=== PATIENT | female | born 1990 | race Caucasian/White ===

== ENCOUNTER 2018-05-23 09:06 | Inpatient (IN) | payer OTHER ==
[2018-05-23] MEDS ORDERED: CARBOPROST 250 MCG INJ IM (10:00)
[2018-05-23] MEDS ORDERED: METHYLERGONOVINE 0.2 MG INJ IM (10:00)
[2018-05-23] MEDS ORDERED: OXYTOCIN 30 UNITS/LR 500 ML IV (10:00)
[2018-05-23] MEDS ORDERED: BUTORPHANOL 2 MG INJ IV (10:00)
[2018-05-23] MEDS ORDERED: MISOPROSTOL 200 MCG TAB PR (10:00)
[2018-05-23] MEDS: LACTATED RINGER'S 1,000 ML IV* ×2 (10:49→18:24)
[2018-05-23 10:54] LABS: ADD MAN DIFF? NO
[2018-05-23 10:55] LABS: WHITE BLOOD COUNT 6.8 10^3/ul (4.8-10.8)
[2018-05-23 10:55] LABS: BASOPHILS % 0.3 % (0.0-2.0); EOSINOPHILS # 0.1 10^3/ul (0.0-0.5); HEMATOCRIT 33.6 % (37.0-47.0); HEMOGLOBIN 11.3 g/dl (12.0-16.0); LYMPHOCYTES # 1.3 10^3/ul (0.8-2.9); LYMPHOCYTES % 18.3 % (15.0-51.0); MEAN CORPUSCULAR HEMOGLOBIN 31.2 pg (29.0-33.0); MEAN CORPUSCULAR HGB CONC 33.6 g/dl (32.0-37.0); MEAN CORPUSCULAR VOLUME 92.8 fl (82.0-101.0); MEAN PLATELET VOLUME 10.6 fl (7.4-10.4); MONOCYTE # 0.5 10^3/ul (0.3-0.9); MONOCYTES % 7.3 % (0.0-11.0); NEUTROPHIL # 4.8 10^3/ul (1.6-7.5); NEUTROPHILS % 70.5 % (39.0-77.0); PLATELET COUNT 177 10^3/UL (140-415); RED BLOOD COUNT 3.62 10^6/ul (4.20-5.40); RED CELL DISTRIBUTION WIDTH 13.3 % (11.5-14.5)
[2018-05-23 11:23] LABS: AMPHETAMINE/METHAMPHETAMINE Negative (NEGATIVE); BARBITURATES Negative (NEGATIVE); BENZODIAZEPINES Negative (NEGATIVE); CANNABINOIDS Negative (NEGATIVE); COCAINE Negative (NEGATIVE); INR 1.02; OPIATES Negative (NEGATIVE); PROTIME 13.5 Sec (11.9-14.9); PT RATIO 1.1
[2018-05-23 11:24] LABS: PARTIAL THROMBOPLASTIN TIME 28.5 Sec (23.0-35.0)
[2018-05-23] MEDS: DINOPROSTONE 10 MG VAG SUPP VAG (11:44)
[2018-05-23 12:23] LABS: HEPATITIS B SURFACE ANTIGEN NEGATIVE (NEGATIVE)
[2018-05-23 16:23] LABS: RAPID PLASMA REAGIN NONREACTIVE (NR)
[2018-05-24] MEDS: LACTATED RINGER'S 1,000 ML IV* ×3 (05:59→21:14)
[2018-05-24] MEDS: MISOPROSTOL 50 MCG CAPSULE PO ×3 (13:01→22:15)
[2018-05-25] MEDS: MISOPROSTOL 50 MCG CAPSULE PO ×3 (01:32→09:52)
[2018-05-25] MEDS: LACTATED RINGER'S 1,000 ML IV* ×5 (02:00→20:21)
[2018-05-25] MEDS: OXYTOCIN 30 UNITS/LR 500 ML IV (16:53)
[2018-05-25] MEDS ORDERED: FENTAnyl 2MCG/ML-ROPIV 0.2% 100 ML (18:22)
[2018-05-25] MEDS ORDERED: NALOXONE (0.4 MG/ML) INJ IV (19:00)
[2018-05-26] MEDS: FENTAnyl 2MCG/ML-ROPIV 0.2% 100 ML BAG EPI ×2 (01:58→08:07)
[2018-05-26] MEDS: LACTATED RINGER'S 1,000 ML IV* ×3 (04:45→14:49)
[2018-05-26] MEDS: OXYTOCIN 30 UNITS/LR 500 ML IV ×2 (09:15→09:53)
[2018-05-26 09:34] LABS: ADD UMIC YES; UR ASCORBIC ACID NEGATIVE (NEGATIVE); UR BACTERIA FEW /HPF (NONE SEEN); UR BILIRUBIN (Dip) NEGATIVE (NEGATIVE); UR BLOOD (Dip) NEGATIVE (NEGATIVE); UR CLARITY CLOUDY (CLEAR); UR COLOR YELLOW (YELLOW); UR GLUCOSE (Dip) 1+ mg/dL (NEGATIVE); UR KETONES (Dip) NEGATIVE (NEGATIVE); UR LEUKOCYTE ESTERASE (Dip) NEGATIVE Leu/ul (NEGATIVE); UR NITRITE (Dip) NEGATIVE (NEGATIVE); UR RBC 2 /HPF (0-5); UR SPECIFIC GRAVITY (Dip) 1.013 (1.003-1.030); UR SQUAMOUS EPITHELIAL CELL MODERATE /HPF (FEW); UR TOTAL PROTEIN (Dip) NEGATIVE (NEGATIVE); UR UROBILINOGEN (Dip) NEGATIVE (NEGATIVE); UR WBC 5 /HPF (0-5)
[2018-05-26] MEDS: IBUPROFEN 600 MG TAB PO ×4 (10:55→23:33)
[2018-05-26] MEDS: DIBUCAINE 1% 30 GM OINT TOP (11:59)
[2018-05-26] MEDS ORDERED: HYDROCODONE/APAP (5/325) TAB PO (12:00)
[2018-05-26] MEDS ORDERED: OXYTOCIN 30 UNITS/LR 500 ML IV (12:00)
[2018-05-26] MEDS ORDERED: MISOPROSTOL 200 MCG TAB PR (12:00)
[2018-05-26] MEDS: WITCH HAZEL/GLYCERIN PAD PR (12:00)
[2018-05-26] MEDS ORDERED: ZOLPIDEM 5 MG TAB PO (12:00)
[2018-05-26] MEDS: LANOLIN 7 GM TUBE TOP (12:00)
[2018-05-26] MEDS ORDERED: CARBOPROST 250 MCG INJ IM (12:00)
[2018-05-26] MEDS: BENZOCAINE 20% 56 ML SPRAY TOP (12:00)
[2018-05-26] MEDS ORDERED: METHYLERGONOVINE 0.2 MG INJ IM (12:00)
[2018-05-26] MEDS: CEPHALEXIN 500 MG CAP PO ×3 (12:01→23:32)
[2018-05-26] MEDS: HYDROCODONE/APAP (5/325) TAB PO ×2 (12:01→21:12)
[2018-05-26] MEDS: MINERAL OIL LIGHT 10 ML VIAL TOP (12:06)
[2018-05-26] MEDS: LIDOCAINE 0.5% (SDV) 50 ML INJ INFIL (12:12)
[2018-05-26] MEDS: MAGNESIUM HYDROXIDE 30ML CUP PO (20:58)
[2018-05-26] MEDS: SENNA/DOCUSATE NA (8.6MG/50MG) TAB PO (20:59)
[2018-05-27] MEDS: CEPHALEXIN 500 MG CAP PO ×4 (05:49→23:38)
[2018-05-27] MEDS: IBUPROFEN 600 MG TAB PO ×4 (05:50→23:38)
[2018-05-27 08:33] LABS: ADD MAN DIFF? NO
[2018-05-27 08:40] LABS: WHITE BLOOD COUNT 13.3 10^3/ul (4.8-10.8)
[2018-05-27 08:40] LABS: BASOPHILS % 0.2 % (0.0-2.0); EOSINOPHILS # 0.5 10^3/ul (0.0-0.5); EOSINOPHILS % 3.9 % (0.0-7.0); HEMATOCRIT 34.7 % (37.0-47.0); HEMOGLOBIN 11.4 g/dl (12.0-16.0); LYMPHOCYTES # 2.3 10^3/ul (0.8-2.9); LYMPHOCYTES % 17.1 % (15.0-51.0); MEAN CORPUSCULAR HEMOGLOBIN 31.1 pg (29.0-33.0); MEAN CORPUSCULAR HGB CONC 32.9 g/dl (32.0-37.0); MEAN CORPUSCULAR VOLUME 94.6 fl (82.0-101.0); MEAN PLATELET VOLUME 11.3 fl (7.4-10.4); MONOCYTE # 0.8 10^3/ul (0.3-0.9); MONOCYTES % 5.7 % (0.0-11.0); NEUTROPHIL # 9.5 10^3/ul (1.6-7.5); NEUTROPHILS % 71.8 % (39.0-77.0); PLATELET COUNT 180 10^3/UL (140-415); RED BLOOD COUNT 3.67 10^6/ul (4.20-5.40); RED CELL DISTRIBUTION WIDTH 13.6 % (11.5-14.5)
[2018-05-27] MEDS: SENNA/DOCUSATE NA (8.6MG/50MG) TAB PO ×2 (08:58→20:23)
[2018-05-27] MEDS: MAGNESIUM HYDROXIDE 30ML CUP PO ×2 (08:58→20:23)
[2018-05-27] MEDS: HYDROCODONE/APAP (5/325) TAB PO ×2 (15:26→20:24)
[2018-05-28] MEDS: CEPHALEXIN 500 MG CAP PO ×2 (06:34→11:44)
[2018-05-28] MEDS: IBUPROFEN 600 MG TAB PO ×2 (06:35→11:44)
[2018-05-28] MEDS: VARICELLA VACCINE LIVE/PF 1,350 UNIT/0.5 ML ML SC* (09:00)
[2018-05-28] MEDS: DIPHTH/TET/ACEL PERTUSS (ADULT) 0.5 ML VIAL IM* (09:00)
[2018-05-28] MEDS: SENNA/DOCUSATE NA (8.6MG/50MG) TAB PO (09:32)
[2018-05-28] MEDS: MAGNESIUM HYDROXIDE 30ML CUP PO (09:32)
[2018-05-28] MEDS: HYDROCODONE/APAP (5/325) TAB PO (09:33)
[2018-05-28] MEDS: MEASLES,MUMPS,RUBELLA VACCINE INJ SC* (11:14)
== END 2018-05-28 13:50 | disposition home or self-care (01) | DRG 806 ==
LOC: L-D 09:06 → PP1 05-26 11:10
PROC: 3E0P7VZ Introduction of Hormone into Female Reproductive, Via Natural or Artificial Opening (ICD-10-PCS; 2018-05-23 09:30)
DX: O99.314 Alcohol use complicating childbirth (principal); O99.324 Drug use complicating childbirth; Z37.0 Single live birth; F10.20 Alcohol dependence, uncomplicated; F15.10 Other stimulant abuse, uncomplicated; Z3A.39 39 weeks gestation of pregnancy
CPT/HCPCS: 62319; 76815; 80307; 81001; 85025; 85610; 85730; 86592; 86850; 86900; 86901; 87086; 87340; 90715; 90716; 99464